=== PATIENT | female | born 2000 | race Caucasian/White ===

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

== ENCOUNTER → 2022-02-06 | Outpatient (CLI) | payer BC | LOC: HEART 5 01-30 13:00 | DX: R07.9 Chest pain, unspecified (principal) ==